=== PATIENT | female | born 1935 | race Caucasian/White ===

== ENCOUNTER 2017-05-06 18:24 | Emergency (ER) | payer OTHER ==
[2017-05-06] MEDS ORDERED: APAP/HYDROCODONE 325/5 TAB PO ONE (19:00)
[2017-05-06 19:03] LABS: BASOPHILS % (AUTO) 2 % (0-3); EOSINOPHILS % (AUTO) 2 % (0-9); HEMATOCRIT 37 % (35-47); MEAN CORPUSCULAR HGB CONC 33.6 gm/dl (32.0-36.0); MEAN CORPUSCULAR VOLUME 86 fL (81-99); MONOCYTES % (AUTO) 7.9 % (0-12); NEUTROPHILS % (AUTO) 59.9 % (37-80)
[2017-05-06] MEDS ORDERED: APAP/HYDROCODONE 325/5 TAB ONE (19:06)
[2017-05-06 19:25] LABS: CALCIUM 8.5 mg/dl (8.5-10.1); POTASSIUM 3.5 mMol/L (3.5-5.1)
[2017-05-06 20:03] LABS: APPEARANCE,URINE Clear; BILIRUBIN,URINE NEGATIVE (NEGATIVE); COLOR,URINE Yellow; GLUCOSE, URINE (UA) NEGATIVE (NEGATIVE); KETONES,URINE NEGATIVE (NEGATIVE); LEUKOCYTE ESTERASE ,URINE NEGATIVE (NEGATIVE); NITRATE,URINE NEGATIVE (NEGATIVE); OCCULT BLOOD,URINE TRACE INTACT (NEG-TRACE); PH,URINE 8.5
[2017-05-06 20:14] LABS: RBC,URINE 0-2 (0-3AV/HPF); WBC,URINE NEG (0-5AV/HPF)
[2017-05-06] MEDS ORDERED: SODIUM CHLORIDE 0.9% 1000ML 1,000 ML IV SCH (20:30)
[2017-05-06] MEDS ORDERED: SODIUM CHLORIDE 0.9% FLUSH 10 ML SOL IV PRN (20:46)
[2017-05-06 20:47] VITALS: RESP 16; TEMP 98.6
[2017-05-06] MEDS ORDERED: ACETAMINOPHEN 325 MG PO ONE (21:17)
[2017-05-06] MEDS ORDERED: LABETALOL HYDROCHLORIDE 5 MG/ML SOL IV ONE ×2 (22:20→22:31)
[2017-05-06 22:40] VITALS: PULSE 67
[2017-05-06 22:55] VITALS: BP 148/70; O2SAT 99
== END 2017-05-06 23:00 | disposition short-term general hospital (02) | DRG 536 ==
LOC: ED 18:24
DX: S72.041A Displaced fracture of base of neck of right femur, initial encounter for closed fracture (principal); S09.90XA Unspecified injury of head, initial encounter; S80.211A Abrasion, right knee, initial encounter; W01.0XXA Fall on same level from slipping, tripping and stumbling without subsequent striking against object, initial encounter; R93.7 Abnormal findings on diagnostic imaging of other parts of musculoskeletal system
CPT/HCPCS: 70450; 71250; 72125; 72192; 73552; 73560; 80048; 81001; 85025; 93005; 96365; 96366; 96374; 99284; 99285; A9270-GY; J3490

== ENCOUNTER 2017-06-05 08:00 | Outpatient (CLI) | payer OTHER ==
[2017-05-06 22:55] VITALS: O2SAT 99
== END 2017-06-05 08:01 | disposition home or self-care (01) | DRG 561 ==
LOC: CONVCARE 08:00
PROVIDERS: ATTEND Orthopaedic Surgery
DX: S72.141D Displaced intertrochanteric fracture of right femur, subsequent encounter for closed fracture with routine healing (principal)
CPT/HCPCS: 73502